=== PATIENT | female | born 1995 | race African-American/Black ===

== ENCOUNTER 2021-10-22 13:06 | Observation (INO) | payer SELFPAY ==
[~2021-10-22] VITALS: Ht 165.1 cm; Wt 71.0 kg
[2021-10-22] MEDS ORDERED: ISOVUE-370 76% 100ML VIAL As Ordered ONE (13:33)
[2021-10-22 13:36] LABS: ABG BASE EXCESS -3.1 (-2.0-2.0); ABG HCO3 22.3 MEQ/L (22.0-26.0); ABG O2 SATURATION 98.8 % (95.0-99.0); ABG PARTIAL PRESSURE CO2 41.1 mmHg (35.0-45.0); ABG STANDARD HCO3 21.9 MEQ/L (22.0-26.0); ABG TOTAL CO2 23.5 MEQ/L (22.0-29.0); ABG pH (ARTERIAL) 7.352 UNITS (7.350-7.450)
[2021-10-22 13:43] LABS: VENOUS BASE EXCESS -2.3 (-2.0-2.0); VENOUS HCO3 25.7 MEQ/L (23.0-27.0); VENOUS O2 SATURATION 57.3 % (60.0-80.0); VENOUS PARTIAL PRESSURE CO2 57.2 mmHg (38.0-50.0); VENOUS PARTIAL PRESSURE O2 32.4 mmHg (30.0-50.0); VENOUS PH 7.271 UNITS (7.330-7.430); VENOUS STANDARD HCO3 21.5 MEQ/L; VENOUS TOTAL CO2 27.5 MEQ/L (24.0-28.0)
[2021-10-22 13:46] LABS: BASO # 0.1 10^3/uL (0.0-0.2); BASO % 1.1 % (0.0-1.0); EOS # 0.2 10^3/uL (0.0-0.5); EOS % 2.7 % (0.0-3.0); HEMATOCRIT 45.5 % (36.0-47.0); HEMOGLOBIN 14.9 g/dl (12.0-15.5); LYMPH % 36.7 % (24.0-44.0); MEAN CORPUSCULAR HGB CONC 32.7 g/dl (32.0-36.5); MEAN CORPUSCULAR VOLUME 94.8 fl (80.0-96.0); MONO # 0.6 10^3/uL (0.0-0.8); MONO % 11.2 % (2.0-8.0); NEUTROPHILS # 2.7 10^3/uL (1.5-8.5); NEUTROPHILS % 47.9 % (36.0-66.0); PLATELET COUNT, AUTOMATED 293 10^3/uL (150-450); WHITE BLOOD COUNT 5.6 10^3/uL (4.0-10.0)
[2021-10-22] MEDS ORDERED: DEXTROSE 50% 50 ML SYRINGE IV STA (13:54)
[2021-10-22] MEDS ORDERED: DEXTROSE 50% 50 ML SYRINGE As Ordered ONE (13:54)
[2021-10-22 14:05] LABS: OSMOLALITY SERUM 311 MOSM/KG (275-295)
[2021-10-22] MEDS ORDERED: NS 1,000 ML IV ONE ×3 (14:20)
[2021-10-22 14:22] LABS: ACETAMINOPHEN LEVEL < 2.0 UG/ML (10.0-30.0); ALBUMIN 3.8 GM/DL (3.2-5.2); ALT/SGPT 14 U/L (12-78); BILIRUBIN,DIRECT 0.2 MG/DL (0.0-0.2); BILIRUBIN,TOTAL 0.5 MG/DL (0.2-1.0); BLOOD UREA NITROGEN 8 MG/DL (7-18); CALCIUM LEVEL 8.7 MG/DL (8.5-10.1); CARBON DIOXIDE LEVEL 26 MEQ/L (21-32); CHLORIDE LEVEL 109 MEQ/L (98-107); CREATININE FOR GFR 0.86 MG/DL (0.55-1.30); ETHYL ALCOHOL (ETHANOL) 0.116 % (0.000-0.010); GLOMERULAR FILTRATION RATE > 60.0 (>60); GLUCOSE, FASTING 75 MG/DL (70-100); MAGNESIUM LEVEL 2.5 MG/DL (1.8-2.4); PHOSPHORUS LEVEL 2.8 MG/DL (2.5-4.9); POTASSIUM SERUM 3.8 MEQ/L (3.5-5.1); SALICYLATE LEVEL 2.1 MG/DL (5.0-30.0); SODIUM LEVEL 141 MEQ/L (136-145); TOTAL PROTEIN 7.6 GM/DL (6.4-8.2)
[2021-10-22 14:36] LABS: RSV AMPLIFICATION NEGATIVE (NEGATIVE)
[2021-10-22] MEDS ORDERED: HOME MED LIST COMPLETE! XX SCH (15:00)
[2021-10-22 15:18] LABS: AMPHETAMINES LEVEL URINE NEGATIVE (NEGATIVE); BARBITURATES URINE NEGATIVE (NEGATIVE); BENZODIAZEPINES URINE NEGATIVE (NEGATIVE); CANNABINOIDS URINE POSITIVE (NEGATIVE); COCAINE METABOLITE URINE NEGATIVE (NEGATIVE); METHADONE URINE NEGATIVE (NEGATIVE); OPIATES URINE NEGATIVE (NEGATIVE); PHENCYCLIDINE URINE NEGATIVE (NEGATIVE)
[2021-10-22] MEDS ORDERED: DEXTROSE 50% 50 ML SYRINGE IV PRN (16:55)
[2021-10-22] MEDS ORDERED: ONDANSETRON 4MG 2ML VIAL IV PRN (16:55)
[2021-10-22] MEDS ORDERED: ACETAMINOPHEN TAB 650MG DOSE (2X325MG) PO PRN (16:55)
[2021-10-22] MEDS ORDERED: GLUCOSE 4GM CHEW TABLET PO PRN (16:55)
[2021-10-22] MEDS ORDERED: LORazepam 2 MG/ML VIAL IV PRN (16:55)
[2021-10-22] MEDS ORDERED: GLUCAGON INJ 1MG VIAL SC PRN (16:55)
[2021-10-22 17:43] LABS: ERYTHROCYTE SEDIMENTATION RATE 6 mm/hr (0-20)
[2021-10-22] MEDS: MULTIVITAMINS/MINERALS THERAP 1 TAB PO SCH (19:21)
[2021-10-22] MEDS: ENOXAPARIN 40MG/0.4ML SYRINGE (J1650 PER 10MG) SC SCH (19:21)
[2021-10-22] MEDS: SUCRALFATE SUSP 1GM/10ML UD PO SCH ×2 (19:21→22:57)
[2021-10-22] MEDS: FOLIC ACID 1 MG TAB PO SCH (19:21)
[2021-10-22] MEDS ORDERED: PANTOPRAZOLE 40MG TAB (PROTONIX) PO SCH (21:00)
[2021-10-22 21:46] VITALS: BP 132/96
[2021-10-22 22:07] VITALS: BP 137/99
[2021-10-22] MEDS ORDERED: PROCHLORPERAZINE 10MG 2ML VIAL IV PRN (22:10)
[2021-10-22] MEDS: THIAMINE 100 MG TAB PO SCH (22:57)
[2021-10-23 00:30] VITALS: BP 117/63
[2021-10-23 05:16] VITALS: BP 101/62
[2021-10-23 06:37] LABS: HEMATOCRIT 37.7 % (36.0-47.0); MEAN CORPUSCULAR HEMOGLOBIN 31.9 pg (27.0-33.0); MEAN CORPUSCULAR HGB CONC 33.4 g/dl (32.0-36.5); MEAN CORPUSCULAR VOLUME 95.4 fl (80.0-96.0); PLATELET COUNT, AUTOMATED 266 10^3/uL (150-450); RED BLOOD COUNT 3.95 10^6/uL (4.00-5.40); WHITE BLOOD COUNT 8.6 10^3/uL (4.0-10.0)
[2021-10-23 06:41] LABS: HEMOGLOBIN 12.6 g/dl (12.0-15.5)
[2021-10-23 06:59] LABS: BLOOD UREA NITROGEN 11 MG/DL (7-18); CARBON DIOXIDE LEVEL 26 MEQ/L (21-32); CHLORIDE LEVEL 112 MEQ/L (98-107); CREATININE FOR GFR 0.72 MG/DL (0.55-1.30); GLOMERULAR FILTRATION RATE > 60.0 (>60); GLUCOSE, FASTING 79 MG/DL (70-100); POTASSIUM SERUM 3.7 MEQ/L (3.5-5.1); SODIUM LEVEL 145 MEQ/L (136-145)
[2021-10-23] MEDS: MULTIVITAMINS/MINERALS THERAP 1 TAB PO SCH (08:31)
[2021-10-23] MEDS: THIAMINE 100 MG TAB PO SCH (08:31)
[2021-10-23] MEDS: ENOXAPARIN 40MG/0.4ML SYRINGE (J1650 PER 10MG) SC SCH (08:31)
[2021-10-23] MEDS: FOLIC ACID 1 MG TAB PO SCH (08:31)
[2021-10-23] MEDS: SUCRALFATE SUSP 1GM/10ML UD PO SCH ×2 (08:31→12:06)
[2021-10-23] MEDS ORDERED: PANT40TA29 PO (11:50)
== END 2021-10-23 13:37 | disposition home or self-care (01) ==
LOC: M ED 13:06 → EDBD 13:06 → M ED INP 13:07 → M MSPAV 21:46
PROVIDERS: ADMIT Internal Medicine; ATTEND Internal Medicine
DX: E16.2 Hypoglycemia, unspecified (principal); I95.9 Hypotension, unspecified; R55 Syncope and collapse; R41.82 Altered mental status, unspecified; R11.0 Nausea; I08.1 Rheumatic disorders of both mitral and tricuspid valves; E28.2 Polycystic ovarian syndrome; G43.909 Migraine, unspecified, not intractable, without status migrainosus; M54.50 Low back pain, unspecified; R10.9 Unspecified abdominal pain; Z88.6 Allergy status to analgesic agent
CPT/HCPCS: 36415; 36600; 70450; 71275; 72125; 74177; 80047; 80048; 80076; 80143; 80307; 82077; 82140; 82803; 83605; 83735; 83930; 84100; 84443; 84484; 84702; 85025; 85027; 85652; 87631; 93005; 93041; 93306; 94760; 96372; 96374; 96375; 99291; 99292; J0780; J1650; J2060; J2405; Q9967

== ENCOUNTER 2021-11-05 00:39 | Emergency (ER) | payer SELFPAY ==
[~2021-11-05] VITALS: Ht 160 cm; Wt 79.1 kg
[~2021-11-05 00:39] MED LIST: PANT40TA29 PO
[2021-11-05 00:40] VITALS: BP 148/86
== END 2021-11-05 04:24 | disposition left against medical advice (07) ==
LOC: M ED 00:39
DX: Z53.21 Procedure and treatment not carried out due to patient leaving prior to being seen by health care provider (principal)

== ENCOUNTER 2021-11-05 05:44 | Emergency (ER) | payer SELFPAY ==
[~2021-11-05] VITALS: Ht 160 cm; Wt 79.5 kg
[2021-11-05] MEDS ORDERED: LIDOCAINE 2% MDV 20ML VIAL SC ONE (07:40)
[2021-11-05 09:50] VITALS: BP 143/93
== END 2021-11-05 10:05 | disposition home or self-care (01) ==
LOC: M ED 05:44
DX: S67.01XA Crushing injury of right thumb, initial encounter (principal); S60.111A Contusion of right thumb with damage to nail, initial encounter; W23.1XXA Caught, crushed, jammed, or pinched between stationary objects, initial encounter; Y92.410 Unspecified street and highway as the place of occurrence of the external cause; K21.9 Gastro-esophageal reflux disease without esophagitis; G43.909 Migraine, unspecified, not intractable, without status migrainosus; F41.9 Anxiety disorder, unspecified; Z88.6 Allergy status to analgesic agent

== ENCOUNTER → 2022-11-05 | Outpatient (CLI) | payer MEDICAID | LOC: M PLALAB 12:46 | PROVIDERS: ATTEND Advanced Practice Midwife | DX: N92.5 Other specified irregular menstruation (principal) ==

== ENCOUNTER → 2022-11-28 | Outpatient (CLI) | payer MEDICAID | LOC: M RAD 13:28 | PROVIDERS: ATTEND Obstetrics & Gynecology | DX: Z34.03 Encounter for supervision of normal first pregnancy, third trimester (principal) ==

== ENCOUNTER → 2022-11-29 | Outpatient (CLI) | payer MEDICAID ==
[2022-11-29 16:02] LABS: BASO # 0.1 10^3/uL (0.0-0.2); BASO % 0.6 % (0.0-1.0); EOS # 0.2 10^3/uL (0.0-0.5); EOS % 1.7 % (0.0-3.0); HEMATOCRIT 34.4 % (36.0-47.0); HEMOGLOBIN 11.2 g/dl (12.0-15.5); LYMPH # 1.9 10^3/uL (1.5-5.0); MEAN CORPUSCULAR HEMOGLOBIN 30.4 pg (27.0-33.0); MEAN CORPUSCULAR HGB CONC 32.6 g/dl (32.0-36.5); MEAN CORPUSCULAR VOLUME 93.5 fl (80.0-96.0); MONO # 1.4 10^3/uL (0.0-0.8); MONO % 10.9 % (2.0-8.0); NEUTROPHILS # 8.3 10^3/uL (1.5-8.5); NEUTROPHILS % 67.1 % (36.0-66.0); PLATELET COUNT, AUTOMATED 268 10^3/uL (150-450); RED BLOOD COUNT 3.68 10^6/uL (4.00-5.40); WHITE BLOOD COUNT 12.4 10^3/uL (4.0-10.0)
[2022-11-29 16:31] LABS: GLUCOSE CHALLENGE TEST 1 HOUR 115 MG/DL (LESS THAN 140)
[2022-11-29 17:01] LABS: HIV 1&2 SCREEN NEGATIVE (NEGATIVE)
[2022-11-29 17:08] LABS: HEPATITIS C VIRUS ABY INDEX 0.14 INDEX (<0.8)
[2022-11-30 12:44] LABS: GC DNA AMPLIFICATION NEGATIVE (NEGATIVE)
== END ==
LOC: M PLALAB 12:19
PROVIDERS: ATTEND Obstetrics & Gynecology
DX: Z34.03 Encounter for supervision of normal first pregnancy, third trimester (principal)

== ENCOUNTER → 2022-12-31 | Outpatient (REF) | payer MEDICAID | LOC: M PLALAB 10:44 | PROVIDERS: ATTEND Obstetrics & Gynecology | DX: Z34.03 Encounter for supervision of normal first pregnancy, third trimester (principal) ==

== ENCOUNTER → 2022-12-31 | Outpatient (REF) | payer MEDICAID | LOC: M SFHCWAGY 17:00 | PROVIDERS: ATTEND Obstetrics & Gynecology | DX: Z34.03 Encounter for supervision of normal first pregnancy, third trimester (principal) ==

== ENCOUNTER → 2023-01-02 | Outpatient (CLI) | payer MEDICAID | LOC: M WHC 07:41 | PROVIDERS: ATTEND Obstetrics & Gynecology | DX: Z34.03 Encounter for supervision of normal first pregnancy, third trimester (principal) ==

== ENCOUNTER → 2023-01-08 | Outpatient (REF) | payer MEDICAID | LOC: M PLALAB 08:41 | PROVIDERS: ATTEND Advanced Practice Midwife | DX: Z34.80 Encounter for supervision of other normal pregnancy, unspecified trimester (principal) ==

== ENCOUNTER 2023-02-13 14:25 | Inpatient (IN) | payer MEDICAID ==
[2023-02-13] VITALS (12 sets, daily range): BP systolic 109–152; BP diastolic 63–87
[~2023-02-13] VITALS: Ht 160 cm; Wt 104.3 kg
[~2023-02-13 14:25] MED LIST changes: +PRENTAB9 PO
[2023-02-13] MEDS ORDERED: HOME MED LIST COMPLETE! XX SCH (16:10)
[2023-02-13] MEDS ORDERED: OXYTOCIN DRIP 30 UNITS in IV 1 EA IV PRN ×4 (16:50)
[2023-02-13] MEDS ORDERED: CARBOPROST TROMETHAMINE 250 MCG/ML AMP IM PRN (16:50)
[2023-02-13] MEDS ORDERED: TRANEXAMIC ACID INJection 1,000 MG in NS 100 ML IV PRN (16:50)
[2023-02-13] MEDS ORDERED: METHYLERGONOVINE MALEATE 0.2MG/ML 1ML VIAL IM PRN (16:50)
[2023-02-13 17:09] LABS: HEMATOCRIT 30.9 % (36.0-47.0); HEMOGLOBIN 10.2 g/dl (12.0-15.5); MEAN CORPUSCULAR HEMOGLOBIN 29.1 pg (27.0-33.0); MEAN CORPUSCULAR VOLUME 88.3 fl (80.0-96.0); PLATELET COUNT, AUTOMATED 205 10^3/uL (150-450); WHITE BLOOD COUNT 10.1 10^3/uL (4.0-10.0)
[2023-02-13] MEDS: LACTATED RINGER'S 1000 ML IV PRN (17:26)
[2023-02-13] MEDS ORDERED: OXYTOCIN DRIP 30 UNITS in IV 1 EA IV SCH (19:10)
[2023-02-13] MEDS: LR 1,000 ML IV SCH (19:39)
[2023-02-14] VITALS (39 sets, daily range): BP systolic 116–158; BP diastolic 62–94
[2023-02-14] MEDS: LR 1,000 ML IV SCH ×2 (03:28→11:30)
[2023-02-14] MEDS: miSOPROStol 50MCG 1/2 TABLET PO SCH ×3 (15:34→23:36)
[2023-02-15] VITALS (48 sets, daily range): BP systolic 110–176; BP diastolic 57–97
[2023-02-15] MEDS ORDERED: OXYTOCIN DRIP 30 UNITS in IV 1 EA IV SCH (04:55)
[2023-02-15] MEDS ORDERED: PROMETHAZINE 25MG/ML 1ML VIAL IV ONE (16:00)
[2023-02-15] MEDS ORDERED: NALBUPHINE HCL 1MG/0.1ML (100MG/10ML) MDV IV ONE (16:00)
[2023-02-15] MEDS: LACTATED RINGER'S 1000 ML IV PRN ×2 (17:17→20:34)
[2023-02-15] MEDS ORDERED: LR 500 ML IV PRN (20:00)
[2023-02-15] MEDS ORDERED: NALOXONE INJ 0.4MG/1ML VIAL IV PRN (20:00)
[2023-02-15] MEDS ORDERED: EPIDURAL/PCA KEYS XX PRN (20:00)
[2023-02-15] MEDS ORDERED: ePHEDrine SULFATE 25 MG/5 ML(5MG/ML) SYRINGE IVP PRN (20:00)
[2023-02-15] MEDS ORDERED: FENTANYL/ROPIVACAINE/NACL BAG 100 ML EPIDURAL SCH (20:00)
[2023-02-15] MEDS ORDERED: ONDANSETRON 4MG 2ML VIAL IV PRN (20:00)
[2023-02-15] MEDS ORDERED: diphenhydrAMINE 50MG/ML VIAL IV PRN (20:00)
[2023-02-16] VITALS (7 sets, daily range): BP systolic 121–179; BP diastolic 62–95; O2SAT 98–100
[2023-02-16 01:19] LABS: CORD GAS ABE V -7.5; CORD GAS HCO3 V 17.8 MMOL/L; CORD GAS PCO2 V 36.1 mmHg; CORD GAS PH V 7.31 UNITS; CORD GAS PO2 V 26.8 mmHg; CORD GAS SBC V 17.6 MMOL/L; CORD GAS TCO2 V 18.9 MMOL/L
[2023-02-16 01:22] LABS: CORD GAS HCO3 A 20.8 MMOL/L; CORD GAS O2 SAT A 65.1 %; CORD GAS PCO2 A 41.4 mmHg; CORD GAS PH A 7.319 UNITS; CORD GAS PO2 A 27.9 mmHg; CORD GAS SBC A 19.6 MMOL/L; CORD GAS TCO2 A 22.1 MMOL/L
[2023-02-16] MEDS ORDERED: DIBUCAINE 1% OINTMENT 30GM TOP PRN (01:30)
[2023-02-16] MEDS ORDERED: DOCUSATE SODIUM 100MG CAPSULE PO PRN (01:30)
[2023-02-16] MEDS ORDERED: ACETAMINOPHEN TAB 650MG DOSE (2X325MG) PO PRN (01:30)
[2023-02-16] MEDS ORDERED: RHOGAM 300MCG (1500IU) INJ IM SCH (01:30)
[2023-02-16] MEDS ORDERED: METHYLERGONOVINE MALEATE 0.2 MG TAB PO PRN (01:30)
[2023-02-16] MEDS: ACETAMINOPHEN 500 MG TAB PO PRN ×2 (05:58→15:22)
[2023-02-16] MEDS: PRENATAL VITAMINS CHEWABLE TABLET PO SCH (09:31)
[2023-02-17 06:00] VITALS: BP 129/79; O2SAT 99
[2023-02-17] MEDS: PRENATAL VITAMINS CHEWABLE TABLET PO SCH (08:24)
[2023-02-17] MEDS: ACETAMINOPHEN 500 MG TAB PO PRN (14:14)
[2023-02-17 18:00] VITALS: BP 134/87; O2SAT 98
[2023-02-18 06:00] VITALS: BP 140/93; O2SAT 100
[2023-02-18] MEDS ORDERED: ACET-683 PO (08:51)
[2023-02-18] MEDS ORDERED: MEASLES,MUMPS,RUBELLA VACCINE INJ (MMR-II) SC.IMMUN ONE (09:00)
[2023-02-18] MEDS: PRENATAL VITAMINS CHEWABLE TABLET PO SCH (09:55)
[2023-02-18] MEDS: ACETAMINOPHEN 500 MG TAB PO PRN (09:56)
== END 2023-02-18 12:40 | disposition home or self-care (01) | DRG 560 ==
LOC: M LDI 14:25 → UNDOADMIN 14:25 → M LDI 15:25 → M OBS 02-16 03:25
PROVIDERS: ADMIT Obstetrics & Gynecology; ATTEND Specialist
PROC: 3E033VJ Introduction of Other Hormone into Peripheral Vein, Percutaneous Approach (ICD-10-PCS; 2023-02-13)
PROC: 10E0XZZ Delivery of Products of Conception, External Approach (ICD-10-PCS; principal; 2023-02-16)
PROC: 10907ZC Drainage of Amniotic Fluid, Therapeutic from Products of Conception, Via Natural or Artificial Opening (ICD-10-PCS; 2023-02-16)
PROC: 0HQ9XZZ Repair Perineum Skin, External Approach (ICD-10-PCS; 2023-02-16)
DX: O48.0 Post-term pregnancy (principal); Z3A.41 41 weeks gestation of pregnancy; Z88.6 Allergy status to analgesic agent; O66.0 Obstructed labor due to shoulder dystocia; O70.0 First degree perineal laceration during delivery; Z37.0 Single live birth

== ENCOUNTER 2024-04-05 08:28 | Emergency (ER) | payer MEDICAID, SELFPAY ==
[~2024-04-05] VITALS: Ht 160 cm; Wt 85.7 kg
[~2024-04-05 08:28] MED LIST changes: +ACET-683 PO
[2024-04-05] MEDS ORDERED: MYLA1SUS PO (08:53)
[2024-04-05 09:18] LABS: BASO % 0.4 % (0.0-1.0); EOS % 0.4 % (0.0-3.0); HEMATOCRIT 41.9 % (36.0-47.0); HEMOGLOBIN 14.4 g/dl (12.0-15.5); LYMPH % 10.6 % (24.0-44.0); MEAN CORPUSCULAR HEMOGLOBIN 29.8 pg (27.0-33.0); MEAN CORPUSCULAR HGB CONC 34.4 g/dl (32.0-36.5); MEAN CORPUSCULAR VOLUME 86.7 fl (80.0-96.0); MONO # 0.5 10^3/uL (0.0-0.8); MONO % 5.3 % (2.0-8.0); NEUTROPHILS # 7.6 10^3/uL (1.5-8.5); PLATELET COUNT, AUTOMATED 284 10^3/uL (150-450); RED BLOOD COUNT 4.83 10^6/uL (4.00-5.40); WHITE BLOOD COUNT 9.1 10^3/uL (4.0-10.0)
[2024-04-05 09:23] LABS: LIPASE 234 U/L (12-53)
[2024-04-05 09:24] LABS: HCG, SERUM QUALITATIVE NEGATIVE (NEGATIVE)
[2024-04-05 09:25] LABS: ALBUMIN 3.6 G/DL (3.2-5.2); ALKALINE PHOSPHATASE 240 U/L (35-104); ALT/SGPT 256 U/L (7.0-40); AST/SGOT 190 U/L (<34); BILIRUBIN,DIRECT 1.5 MG/DL (<0.4); TOTAL PROTEIN 7.9 G/DL (5.7-8.2)
[2024-04-05] MEDS: ONDANSETRON 4MG 2ML VIAL IV ONE (10:19)
[2024-04-05] MEDS: MORPHINE 4 MG/ML 1ML VIAL IV PRN (10:19)
[2024-04-05] MEDS: NS (Normal Saline) 0.9% 1,000 ML IV SCH (14:15)
[2024-04-05] MEDS: PIPERACILLIN/TAZOBACTAM SOD 4.5 GM in DEXTROSE 5% (D5W) ADV/MINI-BAG 50 ML IV ONE (14:15)
[2024-04-05 14:35] LABS: BASO % 0.3 % (0.0-1.0); LYMPH # 0.9 10^3/uL (1.5-5.0); LYMPH % 10.4 % (24.0-44.0); MONO # 0.5 10^3/uL (0.0-0.8); MONO % 5.8 % (2.0-8.0); NEUTROPHILS # 7.4 10^3/uL (1.5-8.5); NEUTROPHILS % 83.2 % (36.0-66.0); WHITE BLOOD COUNT 8.9 10^3/uL (4.0-10.0)
[2024-04-05 14:56] LABS: ALBUMIN 3.3 G/DL (3.2-5.2); BILIRUBIN,DIRECT 1.6 MG/DL (<0.4); BILIRUBIN,TOTAL 2.1 MG/DL (0.3-1.2); TOTAL PROTEIN 7.3 G/DL (5.7-8.2)
[2024-04-05 15:39] VITALS: BP 111/75; O2SAT 98
[2024-04-05 15:50] VITALS: TEMP 98.3
== END 2024-04-05 15:52 | disposition short-term general hospital (02) ==
LOC: M ED 08:28 → EDBD 08:28 → M ED 15:52
DX: K80.81 Other cholelithiasis with obstruction (principal); K85.90 Acute pancreatitis without necrosis or infection, unspecified; F10.10 Alcohol abuse, uncomplicated; Z88.8 Allergy status to other drugs, medicaments and biological substances; Z79.1 Long term (current) use of non-steroidal anti-inflammatories (NSAID); Z79.899 Other long term (current) drug therapy
CPT/HCPCS: 74181; 76705; 80047; 80076; 83690; 84703; 85025; 96365; 96366; 96375; 99285; J2405; J2543